=== PATIENT | male | born 1960 | race Caucasian/White ===

== ENCOUNTER → 2016-07-28 | Outpatient (CLI) | payer BC, OTHER | LOC: ULTRA 14:18 | DX: M79.605 Pain in left leg (principal); R60.0 Localized edema; Z86.718 Personal history of other venous thrombosis and embolism ==

== ENCOUNTER → 2017-07-19 | Outpatient (CLI) | payer BC, OTHER | LOC: MRI 07:31 | DX: J32.9 Chronic sinusitis, unspecified (principal); J34.1 Cyst and mucocele of nose and nasal sinus; G45.9 Transient cerebral ischemic attack, unspecified ==

== ENCOUNTER → 2018-12-21 | Outpatient (CLI) | payer OTHER | LOC: CAT 09:40 | DX: Z13.6 Encounter for screening for cardiovascular disorders (principal); E78.00 Pure hypercholesterolemia, unspecified; I25.10 Atherosclerotic heart disease of native coronary artery without angina pectoris ==

== ENCOUNTER 2019-04-29 07:05 | Emergency (ER) | payer BC, OTHER ==
[~2019-04-29] VITALS: Ht 182.9 cm; Wt 90.7 kg
[2019-04-29 07:18] LABS: URINE BILIRUBIN NEGATIVE (Negative); URINE BLOOD NEGATIVE (Negative); URINE CLARITY CLEAR; URINE COLOR YELLOW; URINE GLUCOSE-RANDOM* NEGATIVE (Negative); URINE KETONES NEGATIVE (Negative); URINE LEUKOCYTES-REFLEX NEGATIVE (Negative); URINE NITRITE-REFLEX NEGATIVE (Negative); URINE PROTEIN (DIPSTICK) NEGATIVE (Negative); URINE SPECIFIC GRAVITY >= 1.030 (1.005-1.035); URINE UROBILINOGEN 0.2 E.U./dl (0.2-1.0)
[2019-04-29] MEDS ORDERED: LIPITOR40 MG PO (07:56)
[2019-04-29] MEDS ORDERED: NORVASC 2.5 MG2.5 M1 PO (07:57)
[2019-04-29] MEDS ORDERED: LISINOPRIL-HCT1 EAC2 PO (07:57)
[2019-04-29 07:59] LABS: ABSOLUTE NEUTROPHILS 5.4 thou/uL (1.4-8.2); BASOPHILS 0.5 % (0.0-2.0); EOSINOPHILS 0.6 % (0.0-3.0); HEMATOCRIT 42.3 % (42.0-52.0); HEMOGLOBIN 14.1 gm/dL (14.0-18.0); LYMPHOCYTES 10.5 % (24.0-44.0); MCH 31.7 pg (26.0-34.0); MCHC 33.3 g/dL (28.0-37.0); MCV 95.2 fL (80.0-100.0); MONOCYTES 5.3 % (1.0-8.0); PLATELET COUNT 201 thou/uL (150-400); POLYS 83.1 % (36.0-66.0); RBC 4.45 mil/uL (4.50-6.00); RDW 12.8 % (10.5-14.5); WBC 6.5 thou/uL (4.0-11.0)
[2019-04-29 08:05] LABS: CALCIUM 9.6 mg/dL (8.5-10.1); CREATININE 1.1 mg/dL (0.7-1.3); POTASSIUM 3.5 mmol/L (3.5-5.1)
[2019-04-29 08:11] LABS: ALBUMIN 3.9 g/dL (3.4-5.0); TOTAL BILIRUBIN 0.5 mg/dL (<0.1-1.0); TOTAL PROTEIN 7.4 g/dL (6.4-8.2)
[2019-04-29] MEDS ORDERED: ZOFRAN ODT4 MG PO (08:55)
[2019-04-29] MEDS ORDERED: NORCO 5-325 TA1 EAC1 PO (08:55)
[2019-04-29 09:11] VITALS: BP 138/95
== END 2019-04-29 09:13 | disposition home or self-care (01) ==
LOC: ER 07:05
PROVIDERS: Emergency Medicine
DX: R10.11 Right upper quadrant pain (principal)

== ENCOUNTER 2020-07-27 22:30 | Emergency (ER) | payer OTHER ==
[~2020-07-27] VITALS: Ht 177.8 cm; Wt 79.4 kg
[~2020-07-27 22:30] MED LIST: LIPITOR40 MG PO; LISINOPRIL-HCT1 EAC2 PO; NORCO 5-325 TA1 EAC1 PO; NORVASC 2.5 MG2.5 M1 PO; ZOFRAN ODT4 MG PO
[2020-07-27 22:56] LABS: ABSOLUTE NEUTROPHILS 4.4 thou/uL (1.4-8.2); BASOPHILS 0.7 % (0.0-2.0); EOSINOPHILS 4.8 % (0.0-3.0); HEMATOCRIT 41.4 % (42.0-52.0); HEMOGLOBIN 14.3 gm/dL (14.0-18.0); LYMPHOCYTES 23.4 % (24.0-44.0); MCHC 34.6 g/dL (28.0-37.0); MCV 95.4 fL (80.0-100.0); MONOCYTES 8.4 % (1.0-8.0); PLATELET COUNT 215 thou/uL (150-400); POLYS 62.7 % (36.0-66.0); RBC 4.34 mil/uL (4.50-6.00); RDW 12.8 % (10.5-14.5); WBC 7.1 thou/uL (4.0-11.0)
[2020-07-27 23:00] LABS: CALCIUM 9.2 mg/dL (8.5-10.1); CREATININE 1.1 mg/dL (0.7-1.3); POTASSIUM 3.4 mmol/L (3.5-5.1)
[2020-07-27 23:06] LABS: TOTAL BILIRUBIN 0.4 mg/dL (0.2-1.0); TOTAL PROTEIN 7.5 g/dL (6.4-8.2)
[2020-07-27 23:12] LABS: URINE BILIRUBIN NEGATIVE (Negative); URINE BLOOD NEGATIVE (Negative); URINE CLARITY CLEAR; URINE COLOR YELLOW; URINE GLUCOSE-RANDOM* NEGATIVE (Negative); URINE KETONES TRACE (Negative); URINE LEUKOCYTES-REFLEX NEGATIVE (Negative); URINE NITRITE-REFLEX NEGATIVE (Negative); URINE PROTEIN (DIPSTICK) NEGATIVE (Negative); URINE UROBILINOGEN 0.2 E.U./dl (0.2-1.0)
[2020-07-28 00:59] VITALS: BP 146/98
--- NOTE | 2020-07-28 12:09 | EKG ---
[place] [address] [facility] [address] [place] [address] ELECTROCARDIOGRAM REPORT Name: GLENNY FLORENCE Room #: DEP [facility] [id number] Admission: 07/27/20 Attend Phys: Discharge: 07/28/20 Date of : 62 Report #: [id number] [facility] ED Test Date: 2020-07-27 Test Time: 23:03:25 Pat Name: GLENNY FLORENCE Department: Room: Gender: Material Handler: : 1960 Requested By: Cristo Law Order Number: [id number] MD: Calderon Cook Measurements Intervals [place] Rate: 64 P: 30 RI: 199 QRS: -27 QRSD: 98 T: 14 QT: 406 QTc: 419 Interpretive Statements Sinus rhythm Borderline left axis deviation Abnormal R-wave progression, early transition No previous ECG available for comparison Electronically Signed On 07-28-2020 12:09:14 CDT by Calderon Cook [email or web address] <ELECTRONICALLY SIGNED> By: Calderon Cook MD 07/28/20 1209 [id number] [id number] MD JORGE Claros
== END 2020-07-28 01:07 | disposition home or self-care (01) ==
LOC: ER 22:30
PROVIDERS: Emergency Medicine
DX: R10.11 Right upper quadrant pain (principal); M54.9 Dorsalgia, unspecified; R14.0 Abdominal distension (gaseous); R11.0 Nausea; I10 Essential (primary) hypertension; E78.5 Hyperlipidemia, unspecified; Z79.899 Other long term (current) drug therapy